=== PATIENT | male | born 1950 ===

== ENCOUNTER → 2017-03-08 | Outpatient (CLI) | payer MEDICARE ==
[~2017-03-08] MED LIST: ASPIRIN325 MG PO; COREG25 MG PO; CURAMIN PO; FINASTERIDE5 MG PO; FLOMAX0.4 MG PO; KRILL OIL PO; MEVACOR20 MG PO; MULTIVITAMINS1 EAC1 PO; NORCO 10-325 T1 EACH PO; PEPCID40 MG PO; PLAVIX75 MG PO; VITAMIN D-32000 UNI1 PO; VITAMIN D35000 UNI1 PO; ZESTRIL30 MG PO; [UNRECOGNIZED DRUG - OTHER] PO; [UNRECOGNIZED DRUG - OTHER] PO
== END | disposition disaster alternative care site (69) ==
LOC: GRAD 11:00
DX: R91.8 Other nonspecific abnormal finding of lung field (principal); I51.7 Cardiomegaly

== ENCOUNTER → 2017-04-07 | Outpatient (CLI) | payer MEDICARE | END | disposition disaster alternative care site (69) | LOC: GKIC 09:30 | DX: C43.59 Malignant melanoma of other part of trunk (principal) | CPT/HCPCS: A9552 ==

== ENCOUNTER → 2017-04-20 | Outpatient (CLI) | payer MEDICARE | LOC: LKCL 16:12 | DX: D22.9 Melanocytic nevi, unspecified (principal); Z85.820 Personal history of malignant melanoma of skin ==